=== PATIENT | female | born 1995 | race Caucasian/White ===

== ENCOUNTER 2023-11-11 12:58 | Inpatient (IN) | payer OTHER, SELFPAY ==
[2023-11-11 10:46] VITALS: BP 125/83; BMI 24.2
[2023-11-11 12:02] LABS: % Basophils 0.2 % (0-2); % Eosinophils 1.1 % (0-6); % Immature Granulocytes 0.4 % (0-0.5); % Lymphocytes 16.7 % (20.5-51.1); % Monocytes 5.6 % (1.7-9.3); Absolute Eosinophils 0.1 10^3/uL (0-0.7); Absolute Lymphocytes 1.3 10^3/uL (1.2-3.4); Absolute Monocytes 0.5 10^3/uL (0.1-0.6); Absolute Neutrophils 6.1 10^3/uL (1.4-6.5); Hematocrit 36.6 % (37.0-47.0); Hemoglobin 13.2 g/dL (12.0-16.0); Mean Corp Hgb Conc. 36.1 g/dL (33.0-37.0); Mean Corpuscular Hgb 30.9 pg (27.0-31.0); Mean Corpuscular Volume 85.7 fL (81.0-99.0); Mean Platelet Volume 12.4 fL (7.4-10.4); Nucleated Red Blood Cells % 0 %; Platelet Count 203 10^3/uL (130-400); Red Blood Cell Count 4.27 10^6/uL (4.20-5.40); Red Cell Dist. Width 12.9 % (11.5-14.5)
[2023-11-11] MEDS: LR 1000 IV (14:25)
[2023-11-12] MEDS: FENTANYL/BUPIVACAINE 100 EPIDURAL ×2 (00:48→08:42)
[2023-11-12] MEDS: SUBLIMAZE 100 MCG EPIDURAL (00:48)
[2023-11-12] MEDS: PITOCIN 30 UNITS/NSS 500 ML IV ×2 (08:33→14:25)
[2023-11-12] MEDS: LR 1000 IV (12:14)
[2023-11-12] MEDS: TYLENOL 650 MG PO (23:50)
[2023-11-12] MEDS: MOTRIN 600 MG PO (23:51)
[2023-11-13 04:48] LABS: Hematocrit 34.3 % (37.0-47.0)
[2023-11-13] MEDS: PRENATAL PLUS 1 TABLET PO (08:30)
[2023-11-13] MEDS: MOTRIN 600 MG PO ×2 (08:58→22:22)
[2023-11-13] MEDS: SENOKOT-S 1 TABLET PO (08:58)
[2023-11-13] MEDS: TYLENOL 650 MG PO ×2 (12:46→23:47)
[2023-11-14] MEDS: TYLENOL 650 MG PO (08:18)
[2023-11-14] MEDS: PRENATAL PLUS 1 TABLET PO (08:19)
[2023-11-14 16:07] LABS: Syphilis/T. pallidum Ab Reflex Negative (Negative)
== END 2023-11-14 12:20 | disposition home or self-care (01) | DRG 807 ==
LOC: LDRP 12:58
PROVIDERS: ADMITTING PHYSICIAN Obstetrics & Gynecology; FAMILY PHYSICIAN Family Medicine
PROC: 0KQM0ZZ Repair Perineum Muscle, Open Approach (ICD-10-PCS; 2023-11-12)
PROC: 10E0XZZ Delivery of Products of Conception, External Approach (ICD-10-PCS; 2023-11-12)
PROC: 10907ZC Drainage of Amniotic Fluid, Therapeutic from Products of Conception, Via Natural or Artificial Opening (ICD-10-PCS; 2023-11-12)
DX: O76 Abnormality in fetal heart rate and rhythm complicating labor and delivery (principal); Z37.0 Single live birth; O69.81X0 Labor and delivery complicated by cord around neck, without compression, not applicable or unspecified; O70.1 Second degree perineal laceration during delivery; Z3A.39 39 weeks gestation of pregnancy
CPT/HCPCS: 36415; 85014; 85018; 85025; 86780; 86850; 86900; 86901